=== PATIENT | female | born 1980 | race Asian ===

== ENCOUNTER → 2022-07-03 | Outpatient (CLI) | payer OTHER ==
--- NOTE | 2022-07-03 15:55 | XR ---
EXAMINATION TYPE: XR lumbosacral spine min 4V DATE OF EXAM: 07/03/2022 Comparison: None Clinical History: 42-year-old female G89.29 Other chronic pain Findings: 5 lumbar type vertebral bodies. No pars interarticularis defect seen. No pars interarticularis defect . Vertebral body heights and disc interspaces are maintained. Impression: No vertebral compression collapse or malalignment.
== END | disposition home or self-care (01) ==
LOC: RADXRMAIN 15:09
PROVIDERS: ATTEND Family Medicine
DX: G89.29 Other chronic pain (principal)
CPT/HCPCS: 72110

== ENCOUNTER 2023-12-22 13:10 | Emergency (ER) | payer OTHER ==
--- NOTE | 2023-12-22 13:27 | ED ---
Abdominal Pain HPI - General Chief Complaint: Abdominal Pain Stated Complaint: Abd pain Time Seen by Provider: 12/22/23 13:25 Source: patient, RN notes reviewed Mode of arrival: ambulatory Limitations: no limitations - History of Present Illness Initial Comments: This is a 43-year-old female presents emergency department chief complaint of right lower quadrant abdominal pain over the past 2 weeks. She states that she has also been constipated with feelings of nausea, no vomiting. She has a history of anemia where iron supplement have been prescribed, patient states that she has intermittent episodes of constipation due to iron supplementation. She denies fevers, chest pain or pressure, dizziness, lightheadedness. denies dysuria, hematuria, hematochezia. Patient denies irregularities in her menstrual cycle and vaginal discharge or order. Underwent a fibroid removal surgery and the spring 2022 and has not followed up with a ceramic engineer since. - Related Data Previous Rx's Medication Instructions Recorded Ibuprofen [Motrin] 800 mg PO Q6HR #30 tab 12/22/23 Allergies Allergy/AdvReac Type Severity Reaction Status Date / Time No Known Allergies Allergy Verified 12/22/23 13:20 Review of Systems ROS Statement: Those systems with pertinent positive or pertinent negative responses have been documented in the HPI. ROS Other: All systems not noted in ROS Statement are negative. Past Medical History Past Medical History: No Reported History History of Any Multi-Drug Resistant Organisms: None Reported Additional Past Surgical History / Comment(s): laparscopic Past Psychological History: No Psychological Hx Reported Smoking Status: Never smoker Past Alcohol Use History: None Reported Past Drug Use History: None Reported General Exam Limitations: no limitations General appearance: alert, in no apparent distress Head exam: Present: atraumatic, normocephalic, normal inspection Eye exam: Present: normal appearance, PERRL, EOMI. Absent: scleral icterus, conjunctival injection, periorbital swelling ENT exam: Present: normal exam, mucous membranes moist Neck exam: Present: normal inspection. Absent: tenderness, meningismus, l ymphadenopathy Respiratory exam: Present: normal lung sounds bilaterally. Absent: respiratory distress, wheezes, rales, rhonchi, stridor Cardiovascular Exam: Present: regular rate, normal rhythm, normal heart sounds. Absent: systolic murmur, diastolic murmur, rubs, gallop, clicks GI/Abdominal exam: Present: soft, tenderness (Right lower quadrant and pelvic pain on palpation), normal bowel sounds. Absent: distended, guarding, rebound, rigid Extremities exam: Present: normal inspection, full ROM, normal capillary refill. Absent: tenderness, pedal edema, joint swelling, calf tenderness Back exam: Present: normal inspection Neurological exam: Present: alert, oriented X3, CN II-XII intact Psychiatric exam: Present: normal affect, normal mood Skin exam: Present: warm, dry, intact, normal color. Absent: rash Course Vital Signs 12/22/23 12/22/23 13:16 15:43 Temperature 98.4 F 98 F Pulse Rate 81 83 Respiratory 18 18 Rate Blood Pressure 147/93 138/76 O2 Sat by Pulse 97 98 Oximetry Medical Decision Making - Medical Decision Making Was pt. sent in by a medical professional or institution (, PA, SOFTBALL PLAYER, urgent care, hospital, or custodial...) When possible be specific @ -No Did you speak to anyone other than the patient for history (EMS, parent, family, police, friend...)? What history was obtained from this source @ -No Did you review nursing and triage notes (agree or disagree)? Why? @ -I reviewed and agree with nursing and triage notes Were old charts reviewed (outside hosp., previous admission, EMS record, old EKG, old radiological studies, urgent care reports/EKG's, custodial records)? Report findings @ -transvaginal US 09/2022 revealed a heterogeneous uterus with multiple fibroids and complex area adjacent to the right ovary. Differential Diagnosis (chest pain, altered mental status, abdominal pain women, abdominal pain men, vaginal bleeding, weakness, fever, dyspnea, syncope, headache, dizziness, GI bleed, back pain, seizure, CVA, palpatations, mental health, musculoskeletal)? @ -Differential Abdominal Pain Women: Appendicitis, Cholecystitis, diverticulosis, ischemic bowel, pancreatitis, hepatitis, UTI, gastroenteritis, AAA, incarcerated hernia, bowel obstruction, constipation, inflammatory bowel, hepatitis, peptic ulcer disease, splenic infarction, perforated viscus, vulvitis, ovarian torsion, PID, kidney stone, placenta abruption, this is not meant to be an all-inclusive list EKG interpreted by me (3pts min.). @ -None X-rays interpreted by me (1pt min.). @ -None done CT interpreted by me (1pt min.). @ -None done U/S interpreted by me (1pt. min.). @ -Pelvic ultrasound of appropriate arterial and venous waveforms to bilateral ovaries. Bilateral cystic areas possible endometriomas or hemorrhagic follicles, fibroid uterus. US of the abdomen revealed a nonvisualization of the appendix in the right lower quadran What testing was considered but not performed or refused? (CT, X-rays, U/S, labs)? Why? @ -CT imaging was considered but deferred at this time, see below. What meds were considered but not given or refused? Why? @ -None Did you discuss the management of the patient with other professionals (professionals i.e. , PA, SOFTBALL PLAYER, lab, RT, psych nurse, social media intern, hospital aides and assistants teacher, teacher, identification officer, director case management)? Give summary @ -No Was smoking cessation discussed for >3mins.? @ -No Was critical care preformed (if so, how long)? @ -No Were there social determinants of health that impacted care today? How? (Homelessness, low income, unemployed, alcoholism, drug addiction, transportation, low edu. Level, literacy, decrease access to med. care, half-way, rehab)? @ -No Was there de-escalation of care discussed even if they declined (Discuss DNR or withdrawal of care, Hospice)? DNR status @ -No What co-morbidities impacted this encounter? (DM, HTN, Smoking, COPD, CAD, Cancer, CVA, ARF, Chemo, Hep., AIDS, mental health diagnosis, sleep apnea, morbid obesity)? @ -None Was patient admitted / discharged? Hospital course, mention meds given and route, prescriptions, significant lab abnormalities, going to OR and other pertinent info. @ -43-year-old female with right lower abdominal and pelvic pain over the past 2 weeks. On examination patient noted to have mild tenderness to the right lower quadrant there is no tenderness over McBurney's point or rebound tenderness noted. Patient will be evaluated with labs and ultrasound testing, patient is agreement with this. CBC reveals a microcytic anemia with hemoglobin of 5.2, hematocrit 33.8. Elevated platelet count of 479. CMP unremarkable. Urinalysis no signs of infection. With patient at bedside that there is little clinical concern for an appendicitis due to pain being constant over the past 2 weeks, nonradiating, no fevers, nausea or vomiting, and pain count is not elevated therefore CT is deferred at this time. Recommend the patient follows up with ceramic engineer due to pelvic ultrasound findings of potential endometrioma. Patient will be sent a prescription for as needed ibuprofen 800. All questions answered at bedside. Strict return parameters shakeel with patient. Case discussed with Dr. Jimenez Undiagnosed new problem with uncertain prognosis? @ -No Drug Therapy requiring intensive monitoring for toxicity (Heparin, Nitro, Insulin, Cardizem)? @ -No Were any procedures done? @ -No Diagnosis/symptom? @ -Right lower abdominal and pelvic pain. Endometrioma Acute, or Chronic, or Acute on Chronic? @ -Acute Uncomplicated (without systemic symptoms) or Complicated (systemic symptoms)? @ -uncomplicated Side effects of treatment? @ -No Exacerbation, Progression, or Severe Exacerbation? @ -No Poses a threat to life or bodily function? How? (Chest pain, USA, SD, pneumonia, PE, COPD, DKA, ARF, appy, cholecystitis, CVA, Diverticulitis, Homicidal, Suicidal, threat to staff... and all critical care pts) @ -No - Lab Data Result diagrams: 12/22/23 13:45 12/22/23 13:45 Lab Results 12/22/23 12/22/23 12/22/23 Range/Units 13:45 13:45 13:45 WBC 9.8 (3.8-10.6) k/uL RBC 4.63 (3.80-5.40) m/uL Hgb 9.2 L (11.4-16.0) gm/dL Hct 33.8 L (34.0-46.0) % MCV 72.8 L (80.0-100.0) fL MCH 19.9 L (25.0-35.0) pg MCHC 27.3 L (31.0-37.0) g/dL RDW 19.0 H (11.5-15.5) % Plt Count 479 H (150-450) k/uL MPV 6.7 Neutrophils % 71 % Lymphocytes % 20 % Monocytes % 4 % Eosinophils % 2 % Basophils % 1 % Neutrophils # 7.0 (1.3-7.7) k/uL Lymphocytes # 2.0 (1.0-4.8) k/uL Monocytes # 0.4 (0-1.0) k/uL Eosinophils # 0.2 (0-0.7) k/uL Basophils # 0.1 (0-0.2) k/uL Hypochromasia Marked Anisocytosis Slight Microcytosis Moderate Sodium 136 L (137-145) mmol/L Potassium 4.2 (3.5-5.1) mmol/L Chloride 103 (98-107) mmol/L Carbon Dioxide 26 (22-30) mmol/L Anion Gap 7 mmol/L BUN 4 L (7-17) mg/dL Creatinine 0.49 L (0.52-1.04) mg/dL Est GFR (CKD-EPI)AfAm >90 (>60 ml/min/1.73 sqM) Est GFR (CKD-EPI)NonAf >90 (>60 ml/min/1.73 sqM) Glucose 87 (74-99) mg/dL Calcium 9.0 (8.4-10.2) mg/dL Total Bilirubin 0.5 (0.2-1.3) mg/dL AST 28 (14-36) U/L ALT 16 (4-34) U/L Alkaline Phosphatase 85 (38-126) U/L Total Protein 8.4 H (6.3-8.2) g/dL Albumin 4.5 (3.5-5.0) g/dL Urine Color Colorless Urine Appearance Clear (Clear) Urine pH 7.0 (5.0-8.0) Ur Specific [place] 1.001 (1.001-1.035) Urine Protein Negative (Negative) Urine Glucose (UA) Negative (Negative) Urine Ketones Negative (Negative) Urine Blood Negative (Negative) Urine Nitrite Negative (Negative) Urine Bilirubin Negative (Negative) Urine Urobilinogen <2.0 (<2.0) mg/dL Ur Leukocyte Esterase Negative (Negative) Disposition Clinical Impression: Endometrioma of ovary, Pelvic pain, Anemia Narrative: Return to the emergency department if symptoms worsen or do not improve. Follow-up with your ceramic engineer. Take medication as needed for pain. Disposition: HOME SELF-CARE Condition: Good Prescriptions: Ibuprofen [Motrin] 800 mg PO Q6HR #30 tab Is patient prescribed a controlled substance at d/c from ED?: No Referrals: Yoana Gallardo MD [Primary Care Provider] - 1-2 days Time of Disposition: 15:17
[2023-12-22 13:35] VITALS: RESP 18
[2023-12-22 14:11] LABS: Anisocytosis Slight; Basophils # (A) 0.1 k/uL (0-0.2); Basophils % (A) 1 %; Eosinophils # (A) 0.2 k/uL (0-0.7); Eosinophils % (A) 2 %; HCT 33.8 % (34.0-46.0); HGB 9.2 gm/dL (11.4-16.0); Hypochromasia Marked; Lymphocytes % (A) 20 %; MCH 19.9 pg (25.0-35.0); MCHC 27.3 g/dL (31.0-37.0); MCV 72.8 fL (80.0-100.0); Mean Platelet Volume 6.7; Microcytosis Moderate; Monocytes # (A) 0.4 k/uL (0-1.0); Monocytes % (A) 4 %; Neutrophils % (A) 71 %; Platelet Count 479 k/uL (150-450); RBC 4.63 m/uL (3.80-5.40); WBC 9.8 k/uL (3.8-10.6)
[2023-12-22 14:22] LABS: Appearance,Urine Clear (Clear); Bilirubin,Urine Negative (Negative); Blood,Urine Negative (Negative); Color,Urine Colorless; Glucose,Urine (UA) Negative (Negative); Ketones,Urine Negative (Negative); Leukocyte Esterase,Urine Negative (Negative); Nitrite,Urine Negative (Negative); Protein,Urine Negative (Negative); Specific Gravity,Urine 1.001 (1.001-1.035); Urobilinogen,Urine <2.0 mg/dL (<2.0)
[2023-12-22 14:36] LABS: ALT 16 U/L (4-34); AST 28 U/L (14-36); African American GFR (CKD) >90 (>60 ml/min/1.73 sqM); Albumin 4.5 g/dL (3.5-5.0); Alkaline Phosphatase 85 U/L (38-126); Anion Gap 7 mmol/L; Blood Urea Nitrogen 4 mg/dL (7-17); Carbon Dioxide 26 mmol/L (22-30); Chloride 103 mmol/L (98-107); Glucose 87 mg/dL (74-99); Non-African American GFR(CKD) >90 (>60 ml/min/1.73 sqM); Potassium 4.2 mmol/L (3.5-5.1); Sodium 136 mmol/L (137-145); Total Bilirubin 0.5 mg/dL (0.2-1.3); Total Protein 8.4 g/dL (6.3-8.2)
--- NOTE | 2023-12-22 14:39 | US ---
EXAMINATION TYPE: US abdomen APPY DATE OF EXAM: 12/22/2023 COMPARISON: NONE CLINICAL INDICATION: Female, 43 years old with history of RLQ ab pain 3 weeks; RLQ pain TECHNIQUE: Multiple sonographic images of the right lower quadrant were obtained with graded compress ion. FINDINGS: Appendix not seen at this time IMPRESSION: Nonvisualization of the appendix in the right lower quadrant. This does not exclude diagnosis of acut e appendicitis.
--- NOTE | 2023-12-22 14:50 | US ---
EXAMINATION TYPE: US pelvic complete DATE OF EXAM: 12/22/2023 COMPARISON: US 2022 CLINICAL INDICATION: Female, 43 years old with history of RLQ ab pain, r/o torsion; RLQ pain TECHNIQUE: . Transabdominal sonographic images of the pelvis were acquired. Date of LMP: 12/10/2023 EXAM MEASUREMENTS: Uterus: 7.4 x 3.5 x 4.3 cm Endometrial Stripe: 0.8 cm Right Ovary: 9.3 x 6.8 x 7.0 cm Left Ovary: 4.7 x 2.7 x 3.1 cm 1. Uterus: heterogeneous with 3.1 x 2.7 x 2.3cm fibroid 2. Endometrium: appears wnl 3. Right Ovary: 8.4 x 5.9 x 5.4cm cystic area with internal echoes 4. Left Ovary: 2.8cm cystic area Spectral, color and waveform doppler imaging shows good arterial and venous flow within the ovaries ; there is no evidence for ovarian torsion. 5. Bilateral Adnexa: wnl 6. Posterior cul-de-sac: wnl IMPRESSION: 1. Appropriate arterial and venous spectral waveforms to the ovaries. 2. Bilateral cystic areas with internal echoes which could possibly represent endometriomas versus h emorrhagic follicles. Further evaluation with MRI with IV contrast. 3. Fibroid uterus. 4. Endometrium within normal limits for thickness.
[2023-12-22 16:25] VITALS: BP 138/76; PULSE 83; TEMP 98
== END 2023-12-22 15:44 | disposition home or self-care (01) ==
LOC: EC 13:10
DX: N80.121 Deep endometriosis of right ovary (principal); D25.9 Leiomyoma of uterus, unspecified
CPT/HCPCS: 36415; 76705; 76856; 80053; 81003; 81025; 85025; 93975; 99284